=== PATIENT | male | born 1965 | race Hispanic/Latino ===

== ENCOUNTER 2019-09-12 15:18 | Emergency (ER) | payer SELFPAY ==
[2019-09-12] MEDS ORDERED: KETOROLAC TROMETHAMINE 60 MG/2 ML VIAL ONE (16:04)
[2019-09-12] MEDS ORDERED: IPRATROPIUM/ALBUTEROL SULFATE 3 ML SOLUTION IH ONE (16:10)
[2019-09-12 16:16] LABS: BASOPHILS % (AUTO) 0.7 % (0.0-5.0); EOSINOPHILS % (AUTO) 2.2 % (0.0-8.0); HEMATOCRIT 50.5 % (42-54); MEAN CORPUSCULAR HEMOGLOBIN 31.1 pg (27.0-33.0); MEAN CORPUSCULAR HGB CONC 32.3 g/dL (32.0-36.0); MEAN CORPUSCULAR VOLUME 96.4 fL (79-99); MONOCYTES % (AUTO) 8.8 % (3.0-13.0); NEUTROPHILS % (AUTO) 58.7 % (40.0-77.0); PLATELET COUNT (AUTO) 232 K/uL (130-400); RED BLOOD CELL COUNT(AUTO) 5.24 MIL/uL (4.50-6.20); RED CELL DISTRIBUTION WIDTH 13.2 % (11.0-15.5); WHITE BLOOD COUNT (AUTO) 10.5 K/uL (4.8-10.8)
[2019-09-12 16:19] LABS: RAPID GROUP A STREP NEGATIVE (NEGATIVE)
[2019-09-12 16:27] LABS: CREATININE 0.9 mg/dL (0.5-1.5)
[2019-09-12 16:37] LABS: ALBUMIN 3.5 g/dL (3.5-5.0); BILIRUBIN,TOTAL 0.3 mg/dL (0.2-1.0); TOTAL PROTEIN, SERUM 7.2 g/dL (6.0-8.3)
== END 2019-09-12 17:32 | disposition home or self-care (01) ==
LOC: EDH 15:18
DX: B34.9 Viral infection, unspecified (principal); Z79.899 Other long term (current) drug therapy; Z72.0 Tobacco use
CPT/HCPCS: 36415; 71045; 80053; 85025; 87804 ×2; 87880; 94640; 96372; 99284; J1885

== ENCOUNTER 2019-11-23 14:00 | Emergency (ER) | payer SELFPAY ==
[2019-11-23] MEDS ORDERED: ASPIRIN 325 MG TABLET ONE (14:12)
[2019-11-23 14:27] LABS: BASOPHILS % (AUTO) 0.5 % (0.0-5.0); EOSINOPHILS % (AUTO) 1.1 % (0.0-8.0); HEMATOCRIT 48.6 % (42-54); LYMPHOCYTES % (AUTO) 31.9 % (21.0-51.0); MEAN CORPUSCULAR HEMOGLOBIN 32.2 pg (27.0-33.0); MEAN CORPUSCULAR VOLUME 94.9 fL (79-99); MONOCYTES % (AUTO) 7.6 % (3.0-13.0); NEUTROPHILS % (AUTO) 58.5 % (40.0-77.0); PLATELET COUNT (AUTO) 209 K/uL (130-400); RED BLOOD CELL COUNT(AUTO) 5.12 MIL/uL (4.50-6.20); RED CELL DISTRIBUTION WIDTH 12.8 % (11.0-15.5); WHITE BLOOD COUNT (AUTO) 9.3 K/uL (4.8-10.8)
[2019-11-23 14:41] LABS: INR 0.99 (0.85-1.15); PARTIAL THROMBOPLASTIN TIME 29.3 SEC (26.3-35.5); PROTHROMBIN TIME 10.7 SEC (9.6-11.6)
[2019-11-23 14:43] LABS: CREATININE 0.9 mg/dL (0.5-1.5); POTASSIUM 3.3 mmol/L (3.5-5.1)
[2019-11-23 14:49] LABS: ALBUMIN 3.7 g/dL (3.5-5.0); BILIRUBIN,TOTAL 0.5 mg/dL (0.2-1.0); TOTAL PROTEIN, SERUM 6.8 g/dL (6.0-8.3)
[2019-11-23 14:54] LABS: B-TYPE NATRIURETIC PEPTIDE 46 pg/mL (0-100)
== END 2019-11-23 18:18 | disposition home or self-care (01) ==
LOC: EDH 14:00
DX: R07.89 Other chest pain (principal); Z72.0 Tobacco use
CPT/HCPCS: 36415; 71045; 80053; 82550; 83880; 84484; 85025; 85610; 85730; 93005

== ENCOUNTER 2024-12-24 14:43 | Emergency (ER) | payer BC ==
[~2024-12-24] VITALS: Ht 165.1 cm; Wt 114.3 kg
--- NOTE | 2024-12-24 15:21 | ERN ---
General Chief Complaint: Heat Exposure Stated Complaint: CRAMPS Time Seen by MD: 14:56 Source: patient History of Present Illness Initial Comments Patient is a healthy 59-year-old male who comes in with a leg cramping. He spent most of the afternoon working outside in the [place] yard. 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 No nausea no vomiting no diarrhea. Allergies: Coded Allergies: No Known Drug Allergies (Unverified Allergy, Unknown, 12/24/24) Past Medical History Past Medical History: Cancer Past Surgical History: None Constitutional: (-) chills, (-) diaphoresis, (-) fever, (-) malaise, (-) weakness, (-) other documentation EENTM: (-) eye pain, (-) blurred vision, (-) tearing, (-) double vision, (-) ear pain, (-) ear discharge, (-) nose pain, (-) nose congestion, (-) throat pain, (-) Throat swelling, (-) mouth pain, (-) tooth pain, (-) mouth swelling, (-) other documentation Respiratory: (-) cough, (-) orthopnea, (-) short of breath, (-) stridor, (-) wheezing, (-) other documentation Cardiovascular: (-) chest pain, (-) edema, (-) palpitations, (-) syncope, (-) dyspnea on exertion, (-) other documentation Gastrointestinal/Abdominal: (-) nausea, (-) vomiting, (-) diarrhea, (-) abdominal pain, (-) abdominal distention, (-) constipation, (-) rectal bleeding, (-) dark stool/melena, (-) other documentation Musculoskeletal: (-) Neck pain, (-) back pain, (-) Flank Pain, (-) joint pain, (-) joint swelling, (-) muscle pain, (-) muscle stiffness, (-) gout, (-) other documentation Physical Exam General Appearance: (+) mild distress Orientation: (+) oriented x 3 Head/Face Trauma: No Eye: bilateral eye normal inspection, bilateral eye PERRL, bilateral eye EOMI Ear, Nose, Throat: (+) hearing grossly normal, (+) normal ENT inspection, (+) moist mucous membraine Neck: (+) normal inspection, (+) supple, (+) full range of motion Respiratory: (+) chest non-tender, (+) lungs clear Heart: (+) regular, (+) no gallop Vascular: (+) no edema, (+) normal peripheral pulse Gastrointestinal: (+) soft, (+) distended Extremities: (+) normal range of motion, (+) non-tender, (+) normal inspection, (+) no pedal edema, (+) no calf tenderness Results Laboratory and Microbiology Lab and Micro Result Laboratory Tests Test 12/24/24 15:16 12/24/24 15:50 White Blood Count 7.7 K/uL (4.8-10.8) Red Blood Count 5.31 MIL/uL (4.50-6.20) Hemoglobin 16.9 g/dL (14.0-18.0) Hematocrit 50.3 % (42-54) Mean Corpuscular Volume 94.7 fL (79-99) Mean Corpuscular Hemoglobin 31.8 pg (27.0-33.0) Mean Corpuscular Hemoglobin Concent 33.6 g/dL (32.0-36.0) Red Cell Distribution Width 13.1 % (11.0-15.5) Platelet Count 217 K/uL (130-400) Mean Platelet Volume 10.4 fL (7.5-10.5) Immature Granulocyte % (Auto) 0.7 % (0-1) Neutrophils (%) (Auto) 61.7 % (40.0-77.0) Lymphocytes (%) (Auto) 27.1 % (21.0-51.0) Monocytes (%) (Auto) 8.2 % (3.0-13.0) Eosinophils (%) (Auto) 1.6 % (0.0-8.0) Basophils (%) (Auto) 0.7 % (0.0-5.0) Neutrophils # (Auto) 4.8 K/uL (1.8-7.7) Lymphocytes # (Auto) 2.1 K/uL (1.0-4.8) Monocytes # (Auto) 0.6 K/uL (0.1-1.0) Eosinophils # (Auto) 0.12 K/uL (0.00-0.70) Basophils # (Auto) 0.05 K/uL (0.00-0.20) Absolute Immature Granulocyte (auto 0.05 K/uL (0-1) Nucleated Red Blood Cells 0.0 % (0.0-0.19) Sodium Level 138 mmol/L (136-145) Potassium Level 3.9 mmol/L (3.5-5.1) Chloride Level 104 mmol/L (101-111) Carbon Dioxide Level 26 mmol/L (21-32) Blood Urea Nitrogen 28 mg/dL (7-18) H Creatinine 1.3 mg/dL (0.5-1.3) Glomerular Filtration Rate Calc 63 mL/min (>90) Random Glucose 104 mg/dL (70-105) Total Calcium 7.9 mg/dL (8.5-10.1) L Total Creatine Kinase 315 U/L (21-232) #H Troponin I High Sensitivity 13 ng/L (4-75) B-Type Natriuretic Peptide 5 pg/mL (0-100) Urine Color YELLOW (YELLOW) Urine Appearance CLEAR (CLEAR) Urine pH 5.5 (5.0-8.0) Urine Specific [place] 1.026 (1.001-1.031) Urine Protein NEGATIVE mg/dL (NEGATIVE) Urine Glucose (UA) NEGATIVE mg/dL (NEGATIVE) Urine Ketones NEGATIVE mg/dL (NEGATIVE) Urine Occult Blood NEGATIVE (NEGATIVE) Urine Nitrate NEGATIVE (NEGATIVE) Urine Bilirubin NEGATIVE mg/dL (NEGATIVE) Urine Urobilinogen 0.2 mg/dL (0.2-1.0) Urine Leukocyte Esterase NEGATIVE Hector/uL Urine RBC 2-5 /HPF (0-1) H Urine WBC 2-5 /HPF (0-1) H Urine Squamous Epithelial Cells RARE /HPF (0-2) Urine Bacteria RARE /HPF (None Seen) Urine Hyaline Casts 6-10 /LPF (0-1 /LPF) H Urine Other Casts 1 /LPF (None Seen) MDM Patient's history leading up to him calling EMS in his physical exam is consistent with a mild heat stroke and dehydration. I will order labs to make sure that he does not have any gross abnormalities that need to be corrected. And give him 2 L of fluid for starters. Patient's laboratory studies have all come back normal. After receiving the 1 L of fluid patient felt much better. I will give him his 2nd fluid bolus and then discharge him. ED Course Orders Procedure Category Date Status Time Vital Signs Per CPOE 12/24/24 Transmitted Routine 15:07 B-Type Natriuretic LAB 12/24/24 Complete Peptide 15:07 Chest 1vw RAD 12/24/24 Resulted 15:07 12 Lead Ekg Tracing- EKG 12/24/24 Logged Technical 15:07 Oxygen By Nc/Pulse Ox CPOE 12/24/24 Transmitted 15:07 Maintain Iv CPOE 12/24/24 Transmitted 15:07 Iv Insertion CPOE 12/24/24 Transmitted 15:07 Cardiac Monitoring CPOE 12/24/24 Transmitted 15:07 Pulse Oximetry With CPOE 12/24/24 Transmitted Vs And Prn 15:07 Cbc With Differential LAB 12/24/24 Complete 15:07 Activity: Br W/Brp CPOE 12/24/24 Transmitted With Assist 15:07 Creatine Kinase, Total LAB 12/24/24 Complete 15:07 Troponin I High LAB 12/24/24 Complete Sensitivity 15:07 Urinalysis Profile LAB 12/24/24 Complete 15:07 Basic Metabolic Panel LAB 12/24/24 Complete 15:07 Lactated Ringers PHA 12/24/24 Complete 1000ml (Lactated 15:21 Lactated Ringers PHA 12/24/24 Complete 1000ml (Lactated 16:40 Current Medications Medications (Trade) Dose Ordered Sig/Stan Route PRN Reason Start Time Stop Time Status Last Admin Dose Admin Lactated Ringer's (Lactated Ringers 1000ml) 1,000 ml BOLUS STAT IV 12/24/24 15:21 12/24/24 15:23 DC 12/24/24 15:39 Lactated Ringer's (Lactated Ringers 1000ml) 1,000 ml BOLUS STAT IV 12/24/24 16:40 12/24/24 16:44 DC 12/24/24 16:48 Vital Signs Date Time Temp Pulse Resp B/P (MAP) Pulse Ox O2 Delivery O2 Flow Rate FiO2 12/24/24 16:15 98.4 91 18 137/89 99 Room Air* 0 12/24/24 15:09 96 18 146/93 93 Room Air* 0 12/24/24 14:53 80 20 146/79 99 Room Air 0 DX & DISP Disposition: Discharge Departure Impression: Primary Impression: Exertional heat stroke Condition: Stable Additional Instructions: Please stay well hydrated when you work outdoors. A good rule of thumb is to make sure that your urine runs teen and clear at least once during and after noon of strenuous activity. Referrals: SELF,REFERRAL (PCP) YSABEL ORNELAS MD December 24, 2024 15:21
[2024-12-24 15:25] LABS: BASOPHILS # (AUTO) 0.05 K/uL (0.00-0.20); BASOPHILS % (AUTO) 0.7 % (0.0-5.0); EOSINOPHILS # (AUTO) 0.12 K/uL (0.00-0.70); EOSINOPHILS % (AUTO) 1.6 % (0.0-8.0); HEMATOCRIT 50.3 % (42-54); IMMATURE GRANULOCYTE ABSOLUTE 0.05 K/uL (0-1); LYMPHOCYTES # (AUTO) 2.1 K/uL (1.0-4.8); LYMPHOCYTES % (AUTO) 27.1 % (21.0-51.0); MEAN CORPUSCULAR HEMOGLOBIN 31.8 pg (27.0-33.0); MEAN CORPUSCULAR HGB CONC 33.6 g/dL (32.0-36.0); MEAN CORPUSCULAR VOLUME 94.7 fL (79-99); MONOCYTES # (AUTO) 0.6 K/uL (0.1-1.0); MONOCYTES % (AUTO) 8.2 % (3.0-13.0); NEUTROPHILS # (AUTO) 4.8 K/uL (1.8-7.7); NEUTROPHILS % (AUTO) 61.7 % (40.0-77.0); PLATELET COUNT (AUTO) 217 K/uL (130-400); RED BLOOD CELL COUNT(AUTO) 5.31 MIL/uL (4.50-6.20); RED CELL DISTRIBUTION WIDTH 13.1 % (11.0-15.5); WHITE BLOOD COUNT (AUTO) 7.7 K/uL (4.8-10.8)
[2024-12-24] MEDS: LACTATED RINGERS 1000ML IV STA ×2 (15:39→16:48)
[2024-12-24 15:41] LABS: CREATININE 1.3 mg/dL (0.5-1.3); POTASSIUM 3.9 mmol/L (3.5-5.1)
--- NOTE | 2024-12-24 15:44 | HMCIMG ---
CHEST 1VW HISTORY: Chest pain COMPARISON: 11/23/2019 FINDINGS: A frontal projection of the chest was obtained. Mild bilateral pulmonary infiltrates are seen may be related to mild pulmonary vascular congestion with possible superimposed pneumonitis. The heart is borderline enlarged. Tortuosity of the aorta is seen. Degenerative changes are seen. IMPRESSION: 1. Mild bilateral pulmonary infiltrates are seen may be related to mild pulmonary vascular congestion with possible superimposed pneumonitis.
[2024-12-24 15:55] LABS: B-TYPE NATRIURETIC PEPTIDE 5 pg/mL (0-100)
[2024-12-24 16:02] LABS: APPEARANCE,URINE CLEAR (CLEAR); BILIRUBIN,URINE NEGATIVE (NEGATIVE); COLOR,URINE YELLOW (YELLOW); GLUCOSE, URINE (UA) NEGATIVE (NEGATIVE); KETONES,URINE NEGATIVE (NEGATIVE); LEUKOCYTE ESTERASE ,URINE NEGATIVE Leu/uL (NEGATIVE); NITRATE,URINE NEGATIVE (NEGATIVE); OCCULT BLOOD,URINE NEGATIVE (NEGATIVE); PH,URINE 5.5 (5.0-8.0); PROTEIN,URINE NEGATIVE (NEGATIVE); UROBILINOGEN,URINE 0.2 mg/dL (0.2-1.0)
[2024-12-24 16:04] LABS: ADD UA MICROSCOPIC YES
[2024-12-24 16:08] LABS: BACTERIA,URINE RARE /HPF (None Seen); MUCUS,URINE RARE LPF (None Seen); OTHER CASTS, URINE 1 /LPF (None Seen); SQUAMOUS EPITHELIAL CELL,UR RARE /HPF (0-2)
[2024-12-24 17:24] VITALS: BP 129/81; PULSE 87; RESP 18; TEMP 98.4; O2SAT 99
--- NOTE | 2024-12-24 19:23 | EKG ---
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
== END 2024-12-24 17:25 | disposition home or self-care (01) ==
LOC: EDH 14:43
DX: T67.02XA Exertional heatstroke, initial encounter (principal); X58.XXXA Exposure to other specified factors, initial encounter; Y93.89 Activity, other specified; Y92.89 Other specified places as the place of occurrence of the external cause; Y99.8 Other external cause status
CPT/HCPCS: 36415; 71045; 80048; 81001; 82550; 83880; 84484; 85025; 93005; 99284